=== PATIENT | male | born 1985 | race African-American/Black ===

== ENCOUNTER 2018-07-12 23:09 | Emergency (ER) | payer OTHER ==
[~2018-07-12] VITALS: Ht 185.4 cm; Wt 124.7 kg
[2018-07-13] MEDS ORDERED: CEPHALEXIN500 M1 PO (01:11)
== END 2018-07-13 01:12 | disposition home or self-care (01) ==
LOC: ED 23:09
DX: S02.2XXA Fracture of nasal bones, initial encounter for closed fracture (principal); S01.01XA Laceration without foreign body of scalp, initial encounter; S00.83XA Contusion of other part of head, initial encounter; Y04.2XXA Assault by strike against or bumped into by another person, initial encounter; Y93.89 Activity, other specified; Y92.89 Other specified places as the place of occurrence of the external cause; Y99.8 Other external cause status

== ENCOUNTER 2018-07-21 11:30 | Emergency (ER) | payer OTHER ==
[~2018-07-21] VITALS: Ht 185.4 cm; Wt 113.4 kg
[~2018-07-21 11:30] MED LIST: CEPHALEXIN500 M1 PO
== END 2018-07-21 14:28 | disposition home or self-care (01) ==
LOC: ED 11:30
DX: S01.01XD Laceration without foreign body of scalp, subsequent encounter (principal); Z48.02 Encounter for removal of sutures; F17.200 Nicotine dependence, unspecified, uncomplicated; X58.XXXD Exposure to other specified factors, subsequent encounter